=== PATIENT | female | born 1985 | race Caucasian/White ===

== ENCOUNTER 2016-06-13 16:40 | Emergency (ER) | payer OTHER ==
[~2016-06-13] VITALS: Ht 160 cm; Wt 59.0 kg
[~2016-06-13 16:40] MED LIST: ALPRAZOLAM1 M2; ATIVAN0.5 MG PO; BACLOFEN10 M1 PO; BUPROPION HCL300 MG PO; BUSPIRONE HCL5 MG PO; CIPRO 500MG TA500 MG PO; CIPRO500 MG PO; CLONAZEPAM1 MG PO; CLONIDINE0.1 MG PO; FETZIMA20 M1; FLEET ENEMA133 ML RC; FOLIC ACID0.4 MG PO; GABAPENTIN300 MG PO; GINGER ROOT PO; GOLYTELY SOLU4000 ML PO; LIDODERM 5% PAT1 PAT EXT; MAGNEBIND 300 21 TAB PO; MEDROXYPROG150 MG/ML IM; METHADONE H5 MG/5 M2 PO; MIRALAX119 GM PO; MIRTAZAPINE15 M2 PO; NAPROSYN500 M1 PO; PROPRANOLOL HCL10 M1 PO; TRAZODONE HCL300 MG PO; TURMERIC500 M1 PO; VITAMIN B COMPL1 CAP PO; VITAMIN C500 M3 PO; VYVANSE50 MG PO; VYVANSE60 M1 PO
--- NOTE | 2016-06-13 17:16 | ED SYNCOPE COMPLAINT ---
History of Present Illness General Chief Complaint: Syncope and Near-Syncope Stated Complaint: BIBA SYCOPE Source: patient Exam Limitations: no limitations Vital Signs & Intake/Output Vital Signs & Intake/Output Vital Signs Date Time Temp Pulse Resp B/P Pulse O2 O2 Flow FiO2 Ox Delivery Rate 06/14 2027 99.3 91 20 90/52 Room Air 06/13 1819 97.0 84 20 91/52 96 Room Air 06/13 1727 80 95/54 06/13 1648 97.0 98 22 102/60 96 Room Air Allergies Coded Allergies: Sulfa (Sulfonamide Antibiotics) (Severe, ANAPHYLAXIS 02/12/16) Reconcile Medications No Known Home Medications Triage Note: PT BIBA FROM DOCTORS OFFICE. PT STATES SHE HASNT BEEN FEELING WELL FOR A FEW DAYS AND HASNT BEEN EATING/DRINKING MUCH USUAL. STATES SHE STOOD UP FROM SITTING AND FELT DIZZY, STATES SHE DID NOT FALL TO THE GROUND BUT PASSED OUT. PT ALERT AND ORIENTED X3. PALE IN COLOR. BS 111 AT THIS TIME. DENIES ANY PAIN. Triage Nurses Notes Reviewed? yes : No Patient currently breastfeeds: No HPI: This patient is a 31 year old female who presented to the emergency department today for evaluation of syncope. She reported, "I have been going through some kind of depression over the last month and have not been eating or drinking much." She reported decreased appetite and, "not wanting to do anything." She stated that today she had a court-ordered intake with a physician today to be evaluated. Her mother is here at the bedside, but was waiting in the car at the time of the exam. She reported that she wasn't feeling well and went to stand up to get a drink of water when she felt dizzy. She sat back down and passed out for a couple seconds. She reported, "everything went black." She did not fall or hit her head. She denied any visual changes, chest pain, difficulty breathing, abdominal pain, nausea, vomiting. She did reported a mild headache currently. (MEENAKSHI CARDONA,ALYSSA) Past History Travel History Traveled to [place] past 21 day No Medical History Any Pertinent Medical History? 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 No (ALYSSA ARRIETA PA-C) Review of Systems Review of Systems Constitutional: Reports: no symptoms. EENTM: Reports: no symptoms. Respiratory: Reports: no symptoms. Cardiovascular: Reports: no symptoms. GI: Reports: no symptoms. Genitourinary: Reports: no symptoms. Musculoskeletal: Reports: no symptoms. Skin: Reports: no symptoms. Neurological/Psychological: Reports: see HPI. All Other Systems: Reviewed and Negative (ALYSSA ARRIETA PA-C) Physical Exam Physical Exam Cranial Nerves: normal hearing, normal speech, PERRL Comments: Well-developed well-nourished person in no acute distress HEENT: Normal EENT exam, head normocephalic/atraumatic PERRLA bilaterally. EOMI bilaterally Nose is atraumatic. Neck: Supple, no lymphadenopathy Back: Normal inspection Cardiovascular: Regular rate and rhythm with no murmurs, rubs, or gallops Respiratory: Chest nontender. No respiratory distress. Breath sounds clear to auscultation bilaterally Abdomen: Soft, nontender and nondistended Extremity: Normal and equal pulses. Neuro: Alert oriented x3, cranial nerves II through XII grossly intact. Skin: No appreciable rash on exposed skin, skin is warm and dry. Psych: Mood and affect is depressed Core Measures ACS in differential dx? Yes CVA/TIA Diagnosis: No Severe Sepsis Present: No Septic Shock Present: No (ALYSSA ARRIETA PA-C) Progress Differential Diagnosis: aortic valve, drug induced syncope, hyperventilation, orthostatic syncope, other valvular disease, pulmonary embolus, seizure, sick sinus syndrome, subarachnoid hem., TIA/CVA Comments: I discussed with this patient her options to speak with one of our crisis workers. She reported that her boyfriend from a drug overdose about a month ago. She reported that she also recently stopped using heroin. She reports that since she started using incense her personal loss, she has not been hungry. She reports that she has never suffered from depression, but over the last month she feels like she has been depressed. I spoke to our crisis team. As she is not SI/HI, a formal crisis consult is unnecessary at this time, but they will be at the patient's bedside to talk with her about her outpatient options. 06/13/2016 7:17:11 pm: Patient reported that she is feeling much better after 1 L of IV fluids. Waiting for CMP results. This patient will receive 1 more liter of fluids and then have her blood pressure rechecked. Patient reported that her blood pressure runs low. (MEENAKSHI CARDONA,ALYSSA) Plan of Care: Orders Procedure Date/time Status ETHANOL 06/13 1717 Complete MISTAKE 06/13 1706 Active COMPREHENSIVE METABOLIC PANEL 06/13 1706 Complete CBC WITHOUT DIFFERENTIAL 06/13 1706 Complete Laboratory Tests 06/13/16 1845: Anion Gap 11, Estimated GFR > 60, BUN/Creatinine Ratio 14.3, Glucose 83, Calcium 8.8, Total Bilirubin 1.0, AST 11 L, ALT 24, Alkaline Phosphatase 89, Total Protein 6.6, Albumin 3.7, Globulin 2.9, Albumin/Globulin Ratio 1.3, Serum Alcohol < 10.0 06/13/161717: Serum Alcohol Cancelled 06/13/161717: CBC w Diff NO MAN DIFF REQ, RBC 4.87, MCV 89.9, MCH 30.0, RDW 14.0, MPV 11.4 H, Gran % 89.9 H, Lymphocytes % 9.8 L, Monocytes % 0.1 L, Eosinophils % 0.1, Basophils % 0.1, Absolute Granulocytes 10.4 H, Absolute Lymphocytes 1.1 L, Absolute Monocytes 0 L, Absolute Eosinophils 0, Absolute Basophils 0, PUBS MCHC 33.4, Methadone Screen Cancelled, Barbiturate Screen Cancelled, Ur Phencyclidine Scrn Cancelled, Amphetamines Screen Cancelled, U Benzodiazepines Scrn Cancelled, Urine Cocaine Screen Cancelled, Urine Cannabis Screen Cancelled Departure Departure Disposition: HOME OR SELF CARE Condition: Stable Clinical Impression Primary Impression: Orthostatic syncope Referrals: LETICIA HICKS DO (PCP/Family) Additional Instructions: Please follow-up with your primary care physician. As discussed, your potassium was slightly low at 3.3 today; please have this level redrawn by your primary care physician later this week. Return immedicately for any worsening symptoms or concerns. Departure Forms: Customer Survey General Discharge Information Prescriptions: Current Visit Scripts No Known Home Medications (MEENAKSHI CARDONA,ALYSSA) PA/MILK HANDLER Co-Sign Statement Statement: ED Attending supervision documentation- [] I saw and evaluated the patient. I have also reviewed all the pertinent lab results and diagnostic results. I agree with the findings and the plan of care as documented in the PA's/MILK HANDLER's documentation. x I have reviewed the ED Record and agree with the PA's/MILK HANDLER's documentation. [] Additions or exceptions (if any) to the PAs/MILK HANDLER's note and plan are summarized below: [] (KAVITA RAWLS,ENZO)
[2016-06-13 17:25] LABS: ABSOLUTE BASOPHIL COUNT 0 /CUMM (0.0-0.2); ABSOLUTE EOSINOPHIL COUNT 0 /CUMM (0.0-0.7); ABSOLUTE GRANULOCYTE CT 10.4 /CUMM (1.4-6.5); ABSOLUTE LYMPH COUNT 1.1 /CUMM (1.2-3.4); ABSOLUTE MONOCYTE COUNT 0 /CUMM (0.10-0.60); BASOPHIL % 0.1 % (0.0-2.0); EOSINOPHIL % 0.1 % (0-5); HEMATOCRIT 43.8 % (37-47); MEAN CORPUSCULAR HGB CONC 33.4 G/DL (33.0-37.0); MEAN CORPUSCULAR VOLUME 89.9 FL (81.0-99.0); MEAN PLATELET VOLUME 11.4 FL (7.4-10.4); PLATELET COUNT 149 /CUMM (130-400); RED BLOOD CELL CT 4.87 /CUMM (4.20-5.40); WHITE BLOOD CELL COUNT 11.6 /CUMM (4.8-10.8)
[2016-06-13 17:34] LABS: GRANULOCYTE % 89.9 % (42.2-75.2)
[2016-06-13 20:28] VITALS: BP 90/52
== END 2016-06-13 20:35 ==
LOC: ERH 16:40
PROVIDERS: Physician Assistant
DX: R55 Syncope and collapse (principal)
CPT/HCPCS: 80307; 96360; G0480

== ENCOUNTER 2016-08-12 20:51 | Emergency (ER) | payer OTHER ==
[~2016-08-12] VITALS: Ht 160 cm; Wt 68.0 kg
[2016-08-12 21:12] VITALS: BP 102/70
--- NOTE | 2016-08-12 22:14 | ED GENERAL ADULT ---
History of Present Illness General Chief Complaint: Female Urogenital Problems Stated Complaint: "?UTI X4DAYS" Source: patient Exam Limitations: no limitations Vital Signs & Intake/Output Vital Signs & Intake/Output Vital Signs Date Time Temp Pulse Resp B/P B/P Pulse O2 O2 Flow FiO2 Mean Ox Delivery Rate 08/13 2151 98 Room Air 08/13 2111 99.0 73 18 102/70 98 Room Air ED Intake and Output 08/13 0000 08/12 1200 Intake Total Output Total Balance Patient 150 lb Weight Weight Reported by Patient Measurement Method Allergies Coded Allergies: Sulfa (Sulfonamide Antibiotics) (Severe, ANAPHYLAXIS 02/12/16) Triage Note: PT TO ED C/O PAIN WITH URINATION FOR 2 DAYS. DARK AND FOUL SMELLING URINE FOR 4 DAYS. PMH OF SAME Triage Nurses Notes Reviewed? yes Onset: 4 days ago Duration: day(s):, constant, getting worse : No Patient currently breastfeeds: No HPI: 31-year-old female with past medical history of recurrent UTIs, nephrolithiasis, anxiety, polysubstance abuse presenting with dysuria, urinary frequency/urgency, foul smelling urine 4 days. Denies any vaginal discharge or bleeding. Denies any fevers, nausea, vomiting, hematuria. (CRISTOFER CARDONA,ANNIKA) Reconcile Medications Nitrofurantoin Monohyd/M-Cryst (Macrobid 100 MG Capsule) 100 MG CAPSULE 1 CAP PO BID UTI with food Phenazopyridine HCl (Pyridium) 100 MG TABLET 1 TAB PO TID UTI (FORTUNATO RAWLS,JASIEL Adkins) Past History Travel History Traveled to [place] past 21 day No Medical History Any Pertinent Medical History? 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 No (ANNIKA CLEVELAND PA-C) Review of Systems Review of Systems Constitutional: Denies: chills, fever. Respiratory: Reports: no symptoms. Cardiovascular: Reports: no symptoms. GI: Denies: abdominal pain, diarrhea, nausea, vomiting. Genitourinary: Reports: dysuria, frequency, urgency. Denies: discharge, hematuria. (ANNIKA CLEVELAND PA-C) Physical Exam Physical Exam General Appearance: well developed/nourished, no apparent distress Respiratory: normal breath sounds, lungs clear Cardiovascular: regular rate/rhythm Gastrointestinal: soft, non-tender Back: No CVAT. Core Measures ACS in differential dx? No CVA/TIA Diagnosis: No Severe Sepsis Present: No Septic Shock Present: No (ANNIKA CLEVELAND PA-C) Progress Differential Diagnoses I considered the following diagnoses in my evaluation of the patient: [Cystitis versus pyelonephritis versus cervicitis versus PID.] Plan of Care: Orders Procedure Date/time Status CULTURE,URINE 08/12 2058 Active URINE 08/12 2056 Complete URINALYSIS 08/12 2056 Complete Laboratory Tests 08/12/162107: Urine Color YEL, Urine Clarity CLDY H, Urine pH 6.0, Ur Specific [place] >= 1.030, Urine Protein NEG, Urine Ketones NEG, Urine Nitrite NEG, Urine Bilirubin NEG, Urine Urobilinogen 0.2, Ur Leukocyte Esterase SMALL H, Ur Microscopic SEDIMENT EXAMINED, Urine RBC 5-10 H, Urine WBC 15-25 H, Ur Epithelial Cells MOD H, Urine Bacteria PACKD H, Urine Hemoglobin TRACE-INTACT, Urine Glucose NEG, Urine Test NEGATIVE Microbiology 08/13 2107 URINE ROUT: Urine Culture - RECD U/A not clean catch, but with 15-25 white blood cells and packed bacteria. This combined with urinary symptoms will treat for UTI. Rx for Macrobid and will follow up with primary care provider. (ANNIKA CLEVELAND PA-C) Initial ED EKG: none (ANNIKA CLEVELAND PA-C) Departure Departure Disposition: HOME OR SELF CARE Condition: Stable Clinical Impression Primary Impression: UTI (urinary tract infection) Referrals: PATIENT HAS NO PRIMARY CARE DR (PCP/Family) Additional Instructions: Take 1 tab of Macrobid by mouth twice daily for 5 days. Follow-up with her primary care provider. Return to the ED for any worsening symptoms. Departure Forms: Customer Survey General Discharge Information (ANNIKA CLEVELAND PA-C) Departure Prescriptions: Current Visit Scripts Nitrofurantoin Monohyd/M-Cryst (Macrobid 100 MG Capsule) 1 CAP PO BID 5 Days with food Phenazopyridine HCl (Pyridium) 1 TAB PO TID 3 Days PA/MOBILE APPLICATION DEVELOPER Co-Sign Statement Statement: ED Attending supervision documentation- [] I saw and evaluated the patient. I have also reviewed all the pertinent lab results and diagnostic results. I agree with the findings and the plan of care as documented in the PA's/MOBILE APPLICATION DEVELOPER's documentation. [x] I have reviewed the ED Record and agree with the PA's/MOBILE APPLICATION DEVELOPER's documentation. [] Additions or exceptions (if any) to the PAs/MOBILE APPLICATION DEVELOPER's note and plan are summarized below: [] (FORTUNATO RAWLS,JASIEL Adkins) Critical Care Note Critical Care Note Critical Care Time: non-applicable (CRISTOFER CARDONA,ANNIKA)
[2016-08-12] MEDS ORDERED: MACROBID 100 M100 MG PO (22:23)
[2016-08-12] MEDS ORDERED: PYRIDIUM100 M1 PO (22:36)
== END 2016-08-12 22:40 ==
LOC: ERH 20:51
DX: N39.0 Urinary tract infection, site not specified (principal)
CPT/HCPCS: 81001; 81025; 87086